=== PATIENT | female | born 1950 | race Caucasian/White ===

== ENCOUNTER 2016-04-06 06:43 | Observation (INO) | payer OTHER ==
[~2016-04-06] VITALS: Ht 162.6 cm; Wt 110.6 kg
[~2016-04-06 06:43] MED LIST: ADVAIR 250/501 DISK IH; ASPIRIN E.C.81 M1 PO; ATROVENT 00.5 MG/2.5 IH; Advair HFA 115/21 IH; BENTYL20 MG PO; BRILINTA90 MG PO; CEFTIN500 MG PO; CRESTOR40 MG PO; DOXYCYCLINE HY100 MG PO; DULCOLAX5 MG PO; DUONEB3 ML IH; ERGOCALCIF50000 UNIT PO; GABAPENTIN300 MG PO; HABITROL,NICODE21 MG TD; LASIX20 MG PO; LASIX40 MG PO; LISINOPRIL10 MG PO; LOPRESSOR25 MG PO; Lasix PO; METOPROLOL TART25 MG PO; Medrol Dosepak PO; NICODERM CQ1 EAC2 TD; OMNICEF300 MG PO; PEPCID20 MG PO; PREDNISONE10 MG PO; PREDNISONE20 MG PO; PROAIR HFA8.5 GM IH; PROTONIX40 MG PO; PROVENTIL,2.5 MG/3 M IH; Proventil,Ventolin H IH; ST. JOSEPH ASPI81 MG PO; SUCRALFATE1 GM PO; VENTOLIN HFA18 GM IH; VITAMIN D2000 UNI1 PO; VITAMIN D31000 UNIT PO; WELLBUTRIN XL300 MG PO; ZANTAC150 MG PO; ZESTRIL10 MG PO; ZITHROMAX Z-PA250 MG PO; ZITHROMAX250 MG PO; ZITHROMAX500 MG PO; Zestril,Prinivil PO
[2016-04-06] MEDS ORDERED: DICYCLOMINE HCL20 MG PO (07:05)
[2016-04-06] MEDS ORDERED: 24 HOUR ALLER15.8 ML BOTH NARES (07:06)
[2016-04-06] MEDS ORDERED: AMOX TR-K CLV1 EAC4 PO (07:07)
[2016-04-06] MEDS ORDERED: SUCRALFATE1 GM PO (07:08)
[2016-04-06 07:34] LABS: HEMATOCRIT 43.2 % (36.0-46.0); MCH 29.6 PG (29.0-34.0); MCHC 33.6 G/DL (30.0-36.0); MCV 88.2 FL (83-99); MEAN PLAT.VOLUME 10.8 uM^3 (9.5-12.4); PLATELET COUNT 254 K/uL (156-360); RBC DIS.WIDTH-CV 14.6 % (11.8-14.6); RBC DIS.WIDTH-SD 46.4 % (39-53); WHITE BLOOD COUNT 8.8 K/uL (4.1-10.2)
[2016-04-06 08:12] LABS: ANION GAP 12 MEQ/L (2-14); CHLORIDE 104 MEQ/L (99-109); GFR ESTIMATE (CALCULATED) > 59 mL/min/; GLUCOSE 116 mg/dL (70-99); SAMPLE HEMOLYSIS CHECK 0; SAMPLE ICTERIC CHECK 0; SAMPLE LIPEMIA CHECK 0; SODIUM 139 MEQ/L (136-147); UREA NITROGEN (BUN) 12 mg/dL (9-23)
[2016-04-06 08:14] LABS: TROP-I INTERPRETATION NEGATIVE; TROPONIN-I 0.01 ng/mL (0.0-0.30)
[2016-04-06] MEDS ORDERED: PROVENTIL,2.5 MG/3 M IH (09:25)
[2016-04-06 11:00] VITALS: BP 127/65
[2016-04-06 12:11] VITALS: BP 135/75
[2016-04-06 15:02] LABS: TROP-I INTERPRETATION NEGATIVE; TROPONIN-I 0.02 ng/mL (0.0-0.30)
[2016-04-06 15:58] VITALS: BP 173/92
[2016-04-06 16:45] VITALS: BP 135/84
[2016-04-06 20:39] LABS: TROP-I INTERPRETATION NEGATIVE; TROPONIN-I 0.03 ng/mL (0.0-0.30)
[2016-04-06 21:19] VITALS: BP 127/87
[2016-04-07 00:31] VITALS: BP 134/70
[2016-04-07 05:24] VITALS: BP 117/58
[2016-04-07 08:50] VITALS: BP 124/65
[2016-04-07 12:57] VITALS: BP 135/65
[2016-04-07] MEDS ORDERED: PANTOPRAZOLE SO40 MG PO (14:02)
[2016-04-07 16:17] VITALS: BP 145/75
[2016-04-07 16:23] VITALS: BP 115/56
== END 2016-04-07 17:30 | disposition home or self-care (01) ==
LOC: EME → EDBD 06:43 → EME 06:43 → EDOF 08:49 → 5WEST 10:44
PROVIDERS: Emergency Medicine; Internal Medicine
DX: R07.9 Chest pain, unspecified (principal); R00.1 Bradycardia, unspecified; I25.10 Atherosclerotic heart disease of native coronary artery without angina pectoris; I25.2 Old myocardial infarction; Z98.61 Coronary angioplasty status; J44.9 Chronic obstructive pulmonary disease, unspecified; I10 Essential (primary) hypertension; E78.5 Hyperlipidemia, unspecified; G47.30 Sleep apnea, unspecified; Z85.820 Personal history of malignant melanoma of skin; Z88.8 Allergy status to other drugs, medicaments and biological substances; Z80.1 Family history of malignant neoplasm of trachea, bronchus and lung; Z82.49 Family history of ischemic heart disease and other diseases of the circulatory system; Z83.3 Family history of diabetes mellitus; Z82.5 Family history of asthma and other chronic lower respiratory diseases; Z87.891 Personal history of nicotine dependence
CPT/HCPCS: 71020; 80048; 83880; 84484; 85027; 93005; 94640; 94640 76; 94799; 99202; 99281; 99285; G0378; J1650; J2270; J2405

== ENCOUNTER 2016-06-12 17:46 | Emergency (ER) | payer OTHER ==
[~2016-06-12] VITALS: Ht 162.6 cm; Wt 115.8 kg
[~2016-06-12 17:46] MED LIST changes: +24 HOUR ALLER15.8 ML BOTH NARES; +AMOX TR-K CLV1 EAC4 PO; +DICYCLOMINE HCL20 MG PO; +PANTOPRAZOLE SO40 MG PO
[2016-06-12 19:23] LABS: EOSINOPHIL (%) 2.9 % (0-5); EOSINOPHIL COUNT 0.2 K/uL (0-0.3); HEMATOCRIT 41.1 % (36.0-46.0); IMMATURE GRANULOCYTE (%) 0.5 % (0.0-0.7); LYMPHOCYTE COUNT 2.4 K/uL (1.0-2.8); MCHC 32.4 G/DL (30.0-36.0); MCV 89.7 FL (83-99); MEAN PLAT.VOLUME 10.8 uM^3 (9.5-12.4); MONOCYTE (%) 6.1 % (3-12); MONOCYTE COUNT 0.5 K/uL (0-0.8); NEUTROPHIL (%) 61.6 % (45-76); PLATELET COUNT 256 K/uL (156-360); RBC DIS.WIDTH-SD 45.9 % (39-53); RED BLOOD COUNT 4.58 M/uL (3.80-5.20); WHITE BLOOD COUNT 8.2 K/uL (4.1-10.2)
[2016-06-12 19:40] LABS: CHLORIDE 106 mEq/L (99-109); POTASSIUM 4.5 mEq/L (3.7-5.4); SODIUM 140 mEq/L (136-147)
[2016-06-12 19:42] LABS: GLUCOSE 93 mg/dL (70-99)
[2016-06-12 19:43] LABS: ANION GAP 8 MEQ/L (2-14)
[2016-06-12 19:44] LABS: TOTAL BILIRUBIN 0.6 mg/dL (0.0-1.0)
[2016-06-12 19:45] LABS: ALKALINE PHOSPHATASE 54 IU/L (3-129)
[2016-06-12 19:46] LABS: GFR ESTIMATE (CALCULATED) > 59 mL/min/
[2016-06-12 19:47] LABS: UREA NITROGEN (BUN) 13 mg/dL (9-23)
[2016-06-12 19:48] LABS: TROP-I INTERPRETATION NEGATIVE; TROPONIN-I < 0.01 ng/mL (0.0-0.30)
[2016-06-12 19:49] LABS: LIPASE 28 U/L (1.0-51.0)
[2016-06-12] MEDS ORDERED: SPIRIVA1 INHALATI IH (22:00)
[2016-06-12] MEDS ORDERED: PROTONIX40 MG PO ×2 (22:00→23:01)
[2016-06-12] MEDS ORDERED: COZAAR25 MG PO (22:01)
[2016-06-12] MEDS ORDERED: SUCRALFATE1 GM PO (23:01)
[2016-06-12 23:34] VITALS: BP 162/97
== END 2016-06-12 23:36 | disposition home or self-care (01) ==
LOC: EME → EDBD 17:46 → EME 17:46 → EDOF 21:42 → EME 21:42 → EDOF 21:42
PROVIDERS: Emergency Medicine
DX: R07.9 Chest pain, unspecified (principal); K21.9 Gastro-esophageal reflux disease without esophagitis; I25.10 Atherosclerotic heart disease of native coronary artery without angina pectoris; I25.2 Old myocardial infarction; E66.01 Morbid (severe) obesity due to excess calories; I11.0 Hypertensive heart disease with heart failure; I50.9 Heart failure, unspecified; E78.5 Hyperlipidemia, unspecified; Z68.41 Body mass index [BMI] 40.0-44.9, adult; H61.891 Other specified disorders of right external ear; Z95.5 Presence of coronary angioplasty implant and graft; Z87.891 Personal history of nicotine dependence
CPT/HCPCS: 71020; 80053; 80061; 83690; 84484; 85025; 93005; 99281; 99285; C9113

== ENCOUNTER 2016-12-07 12:38 | Observation (INO) | payer OTHER ==
[~2016-12-07] VITALS: Ht 162.6 cm; Wt 108.1 kg
[~2016-12-07 12:38] MED LIST changes: +COZAAR50 MG PO; +SPIRIVA1 INHALATI IH; +WELLBUTRIN XL150 MG PO; -WELLBUTRIN XL300 MG PO
[2016-12-07 14:16] LABS: EOSINOPHIL (%) 1.3 % (0-5); EOSINOPHIL COUNT 0.1 K/uL (0-0.3); HEMATOCRIT 44.1 % (36.0-46.0); IMMATURE GRANULOCYTE (%) 0.4 % (0.0-0.7); INSTRUMENT ABS NEUTROPHIL CT 6.8 K/uL; LYMPHOCYTE COUNT 2.3 K/uL (1.0-2.8); MCH 29.4 PG (29.0-34.0); MCHC 32.9 G/DL (30.0-36.0); MCV 89.3 FL (83-99); MEAN PLAT.VOLUME 11.1 uM^3 (9.5-12.4); MONOCYTE (%) 4.6 % (3-12); MONOCYTE COUNT 0.4 K/uL (0-0.8); NEUTROPHIL (%) 69.9 % (45-76); NEUTROPHIL COUNT 6.8 K/uL (1.8-6.4); PLATELET COUNT 279 K/uL (156-360); RBC DIS.WIDTH-CV 14.6 % (11.8-14.6); RBC DIS.WIDTH-SD 47.6 % (39-53); RED BLOOD COUNT 4.94 M/uL (3.80-5.20); WHITE BLOOD COUNT 9.7 K/uL (4.1-10.2)
[2016-12-07 14:33] LABS: ANION GAP 8 MEQ/L (2-14); CHLORIDE 106 MEQ/L (99-109); SAMPLE HEMOLYSIS CHECK 0; SAMPLE ICTERIC CHECK 0; SAMPLE LIPEMIA CHECK 0; SODIUM 143 MEQ/L (136-147)
[2016-12-07 14:38] LABS: GFR ESTIMATE (CALCULATED) > 59 mL/min/; GLUCOSE 98 mg/dL (70-99); UREA NITROGEN (BUN) 8 mg/dL (9-23)
[2016-12-07 14:42] LABS: TROP-I INTERPRETATION NEGATIVE; TROPONIN-I 0.01 ng/mL (0.0-0.30)
[2016-12-07 17:39] LABS: TROP-I INTERPRETATION NEGATIVE; TROPONIN-I < 0.01 ng/mL (0.0-0.30)
[2016-12-07] MEDS ORDERED: WELLBUTRIN XL150 MG PO (17:55)
[2016-12-07] MEDS ORDERED: FUROSEMIDE20 MG PO (17:57)
[2016-12-07] MEDS ORDERED: PROTONIX40 MG PO (17:57)
[2016-12-07 20:00] VITALS: BP 148/97
[2016-12-07 23:07] VITALS: BP 105/56
[2016-12-08 01:46] LABS: TROP-I INTERPRETATION NEGATIVE; TROPONIN-I < 0.01 ng/mL (0.0-0.30)
[2016-12-08 03:31] VITALS: BP 108/56
[2016-12-08 07:30] VITALS: BP 130/76
[2016-12-08 08:48] LABS: HEMATOCRIT 44.4 % (36.0-46.0); MCH 28.1 PG (29.0-34.0); MCHC 31.5 G/DL (30.0-36.0); MCV 89.2 FL (83-99); MEAN PLAT.VOLUME 11.1 uM^3 (9.5-12.4); PLATELET COUNT 268 K/uL (156-360); RBC DIS.WIDTH-CV 14.7 % (11.8-14.6); RBC DIS.WIDTH-SD 48.2 % (39-53); RED BLOOD COUNT 4.98 M/uL (3.80-5.20); WHITE BLOOD COUNT 7.9 K/uL (4.1-10.2)
[2016-12-08 09:11] LABS: ALKALINE PHOSPHATASE 53 IU/L (3-129); ANION GAP 10 MEQ/L (2-14); CHLORIDE 103 MEQ/L (99-109); GFR ESTIMATE (CALCULATED) > 59 mL/min/; GLUCOSE 118 mg/dL (70-99); POTASSIUM 3.7 MEQ/L (3.7-5.4); SAMPLE HEMOLYSIS CHECK 0; SAMPLE ICTERIC CHECK 0; SAMPLE LIPEMIA CHECK 0; SODIUM 142 MEQ/L (136-147); TOTAL BILIRUBIN 1.1 MG/DL (0.0-1.0); UREA NITROGEN (BUN) 8 mg/dL (9-23)
[2016-12-08 09:20] LABS: TROP-I INTERPRETATION NEGATIVE; TROPONIN-I < 0.01 ng/mL (0.0-0.30)
[2016-12-08 11:32] VITALS: BP 145/89
[2016-12-08] MEDS ORDERED: MAG-AL PLUS SUS30 ML PO (13:47)
== END 2016-12-08 16:00 | disposition home or self-care (01) ==
LOC: EME 12:38 → EDOF 18:11 → ENRESERV 18:12 → 5WEST 19:51
PROVIDERS: Emergency Medicine; Internal Medicine
DX: K21.9 Gastro-esophageal reflux disease without esophagitis (principal); I10 Essential (primary) hypertension; J44.9 Chronic obstructive pulmonary disease, unspecified; E78.5 Hyperlipidemia, unspecified; G47.33 Obstructive sleep apnea (adult) (pediatric); G43.909 Migraine, unspecified, not intractable, without status migrainosus; F32.9 Major depressive disorder, single episode, unspecified; Z85.820 Personal history of malignant melanoma of skin; I25.10 Atherosclerotic heart disease of native coronary artery without angina pectoris; Z95.5 Presence of coronary angioplasty implant and graft; Z90.49 Acquired absence of other specified parts of digestive tract; Z82.49 Family history of ischemic heart disease and other diseases of the circulatory system; Z83.3 Family history of diabetes mellitus; Z80.1 Family history of malignant neoplasm of trachea, bronchus and lung; Z82.5 Family history of asthma and other chronic lower respiratory diseases; Z80.8 Family history of malignant neoplasm of other organs or systems; Z87.891 Personal history of nicotine dependence; Z88.1 Allergy status to other antibiotic agents
CPT/HCPCS: 71010; 80048; 80053; 84484; 85025; 85027; 93005; 94640; 94640 76; 99202; 99281; 99285; G0378; J1650

== ENCOUNTER 2017-02-23 04:53 | Observation (INO) | payer OTHER ==
[~2017-02-23] VITALS: Ht 171.4 cm; Wt 112.5 kg
[~2017-02-23 04:53] MED LIST changes: +COZAAR100 MG PO; -COZAAR50 MG PO; +FUROSEMIDE20 MG PO; +MAG-AL PLUS SUS30 ML PO
[2017-02-23 05:21] LABS: CHLORIDE 104 mEq/L (99-109); POTASSIUM 4.4 mEq/L (3.7-5.4); SODIUM 138 mEq/L (136-147)
[2017-02-23 05:23] LABS: GLUCOSE 110 mg/dL (70-99)
[2017-02-23 05:27] LABS: CREATININE 0.9 mg/dL (0.6-1.3); GFR ESTIMATE (CALCULATED) > 59 mL/min/
[2017-02-23 05:28] LABS: UREA NITROGEN (BUN) 13 mg/dL (9-23)
[2017-02-23 05:32] LABS: TROP-I INTERPRETATION NEGATIVE; TROPONIN-I < 0.01 ng/mL (0.0-0.30)
[2017-02-23 05:43] LABS: HEMATOCRIT 43.7 % (36.0-46.0); HEMOGLOBIN 14.3 G/DL (11.9-15.5); MCH 29.1 PG (29.0-34.0); MCHC 32.7 G/DL (30.0-36.0); PLATELET COUNT 275 K/uL (156-360); RBC DIS.WIDTH-CV 14.9 % (11.8-14.6); RBC DIS.WIDTH-SD 48.7 % (39-53); RED BLOOD COUNT 4.91 M/uL (3.80-5.20); WHITE BLOOD COUNT 8.5 K/uL (4.1-10.2)
[2017-02-23 07:08] LABS: ALBUMIN 3.9 G/DL (3.2-4.8); ALKALINE PHOSPHATASE 58 IU/L (3-129); ALT (GPT) 19 IU/L (3-49); AST (GOT) 19 IU/L (2-34); DIRECT BILIRUBIN 0.2 mg/dL (0.0-0.3); LIPASE 24 U/L (1.0-51.0); TOTAL PROTEIN 6.9 G/DL (6.4-8.3)
[2017-02-23 07:40] LABS: APPEARANCE CLEAR ((CLEAR)); BILIRUBIN NEGATIVE; BLOOD NEGATIVE; COLOR YELLOW ((YELLOW)); GLUCOSE (STRIP) NEGATIVE; KETONES NEGATIVE; LEUKOCYTES NEGATIVE; NITRITE NEGATIVE; PROTEIN (STRIP) NEGATIVE; SPECIFIC GRAVITY 1.009 (1.000-1.030); UROBILINOGEN 0.2 MG/DL (0.2-1.0)
[2017-02-23 09:57] VITALS: BP 139/86
[2017-02-23 11:52] LABS: TROP-I INTERPRETATION NEGATIVE; TROPONIN-I < 0.01 ng/mL (0.0-0.30)
[2017-02-23] MEDS ORDERED: BREO ELLIPTA I1 EACH IH (14:41)
[2017-02-23] MEDS ORDERED: FLONASE16 G1 BOTH NARES (14:41)
[2017-02-23] MEDS ORDERED: MAG-AL PLUS SUS30 ML PO (15:00)
[2017-02-23 16:10] VITALS: BP 142/79
[2017-02-23 16:40] VITALS: BP 137/78
[2017-02-23 17:06] LABS: TROP-I INTERPRETATION NEGATIVE; TROPONIN-I < 0.01 ng/mL (0.0-0.30)
== END 2017-02-23 18:41 | disposition home or self-care (01) ==
LOC: EME → EDBD 04:53 → EME 04:53 → EDOF 08:45 → ENRESERV 09:01 → EDOF 09:27 → 5WEST 09:52
PROVIDERS: Nurse Practitioner Family; Physician Assistant Medical
DX: R07.9 Chest pain, unspecified (principal); J04.2 Acute laryngotracheitis; I25.10 Atherosclerotic heart disease of native coronary artery without angina pectoris; Z95.5 Presence of coronary angioplasty implant and graft; I11.0 Hypertensive heart disease with heart failure; I50.9 Heart failure, unspecified; G47.33 Obstructive sleep apnea (adult) (pediatric); K21.9 Gastro-esophageal reflux disease without esophagitis; E78.5 Hyperlipidemia, unspecified; J44.9 Chronic obstructive pulmonary disease, unspecified; Z90.49 Acquired absence of other specified parts of digestive tract; Z87.891 Personal history of nicotine dependence; Z82.49 Family history of ischemic heart disease and other diseases of the circulatory system; Z80.1 Family history of malignant neoplasm of trachea, bronchus and lung
CPT/HCPCS: 71020; 80048; 80076; 81003; 83690; 84484; 85027; 93005; 94640; 94640 76; 99202; 99281; 99285; G0378; J1650

== ENCOUNTER 2017-03-18 02:55 | Emergency (ER) | payer OTHER ==
[~2017-03-18] VITALS: Ht 162.6 cm; Wt 111.3 kg
[~2017-03-18 02:55] MED LIST changes: +BREO ELLIPTA I1 EACH IH; +FLONASE16 G1 BOTH NARES
[2017-03-18 02:57] VITALS: BP 169/88
[2017-03-18 03:22] LABS: HEMATOCRIT 44.5 % (36.0-46.0); HEMOGLOBIN 14.6 G/DL (11.9-15.5); MCH 29.6 PG (29.0-34.0); MCHC 32.8 G/DL (30.0-36.0); MCV 90.1 FL (83-99); PLATELET COUNT 271 K/uL (156-360); RBC DIS.WIDTH-CV 14.8 % (11.8-14.6); RED BLOOD COUNT 4.94 M/uL (3.80-5.20); WHITE BLOOD COUNT 9.7 K/uL (4.1-10.2)
[2017-03-18 03:36] LABS: CHLORIDE 106 mEq/L (99-109); POTASSIUM 3.5 mEq/L (3.7-5.4); SODIUM 140 mEq/L (136-147)
[2017-03-18 03:39] LABS: GLUCOSE 129 mg/dL (70-99); TOTAL PROTEIN 6.9 g/dL (6.4-8.3)
[2017-03-18 03:41] LABS: TOTAL BILIRUBIN 0.7 mg/dL (0.0-1.0)
[2017-03-18 03:42] LABS: ALKALINE PHOSPHATASE 56 IU/L (3-129); CREATININE 0.8 mg/dL (0.6-1.3); GFR ESTIMATE (CALCULATED) > 59 mL/min/
[2017-03-18 03:43] LABS: UREA NITROGEN (BUN) 11 mg/dL (9-23)
[2017-03-18 03:44] LABS: AST (GOT) 20 IU/L (2-34)
[2017-03-18 03:45] LABS: ALT (GPT) 25 IU/L (3-49)
== END 2017-03-18 05:55 | disposition left against medical advice (07) ==
LOC: EME 02:55
DX: R42 Dizziness and giddiness (principal); Z53.21 Procedure and treatment not carried out due to patient leaving prior to being seen by health care provider
CPT/HCPCS: 80053; 81003; 85027; 93005

== ENCOUNTER 2017-08-31 21:20 | Observation (INO) | payer OTHER ==
[~2017-08-31] VITALS: Ht 160 cm; Wt 112.7 kg
[2017-08-31 22:30] LABS: BASOPHIL (%) 0.3 % (0-1); EOSINOPHIL (%) 1.8 % (0-5); EOSINOPHIL COUNT 0.2 K/uL (0-0.3); HEMATOCRIT 42.1 % (36.0-46.0); HEMOGLOBIN 13.9 G/DL (11.9-15.5); IMMATURE GRANULOCYTE (%) 0.5 % (0.0-0.7); LYMPHOCYTE (%) 26.1 % (15-42); LYMPHOCYTE COUNT 2.3 K/uL (1.0-2.8); MCH 29.2 PG (29.0-34.0); MCV 88.4 FL (83-99); MONOCYTE (%) 6.7 % (3-12); MONOCYTE COUNT 0.6 K/uL (0-0.8); NEUTROPHIL (%) 64.6 % (45-76); NEUTROPHIL COUNT 5.7 K/uL (1.8-6.4); PLATELET COUNT 242 K/uL (156-360); RBC DIS.WIDTH-CV 14.7 % (11.8-14.6); RBC DIS.WIDTH-SD 47.1 % (39-53); RED BLOOD COUNT 4.76 M/uL (3.80-5.20); WHITE BLOOD COUNT 8.8 K/uL (4.1-10.2)
[2017-08-31 22:44] LABS: CHLORIDE 103 mEq/L (99-109); POTASSIUM 3.9 mEq/L (3.7-5.4); SODIUM 142 mEq/L (136-147)
[2017-08-31 22:45] LABS: GLUCOSE 104 mg/dL (70-99)
[2017-08-31 22:49] LABS: CREATININE 1.4 mg/dL (0.6-1.3); GFR ESTIMATE (CALCULATED) 40 mL/min/
[2017-08-31 22:50] LABS: UREA NITROGEN (BUN) 14 mg/dL (9-23)
[2017-08-31 22:57] LABS: TROP-I INTERPRETATION NEGATIVE; TROPONIN-I 0.01 ng/mL (0.0-0.30)
[2017-09-01] MEDS ORDERED: AMLODIPINE BESYL5 MG PO (00:19)
[2017-09-01] MEDS ORDERED: CARAFATE1 GM PO (00:19)
[2017-09-01] MEDS ORDERED: NITROSTAT0.4 MG SL (00:20)
[2017-09-01] MEDS ORDERED: SHINGRIX V50 MCG/0.5 IM (00:20)
[2017-09-01 01:40] VITALS: BP 137/75
[2017-09-01 07:36] VITALS: BP 125/60
[2017-09-01] MEDS ORDERED: AZITHROMYCIN500 M1 PO (09:13)
[2017-09-01] MEDS ORDERED: MAG-AL PLUS SUS30 ML PO (09:15)
[2017-09-01 11:24] LABS: TROP-I INTERPRETATION NEGATIVE; TROPONIN-I < 0.01 ng/mL (0.0-0.30)
[2017-09-01 11:33] VITALS: BP 111/68
[2017-09-01 16:19] VITALS: BP 124/76
[2017-09-01 17:16] LABS: TROP-I INTERPRETATION NEGATIVE; TROPONIN-I < 0.01 ng/mL (0.0-0.30)
== END 2017-09-01 18:18 | disposition home or self-care (01) ==
LOC: EME → EDBD 21:20 → EME 21:20 → EDOF 09-01 00:05 → ENRESERV 09-01 00:06 → 4SOUTH 09-01 01:31
PROVIDERS: Emergency Medicine; Internal Medicine; Physician Assistant Medical
DX: R07.9 Chest pain, unspecified (principal); K21.9 Gastro-esophageal reflux disease without esophagitis; I25.10 Atherosclerotic heart disease of native coronary artery without angina pectoris; I25.2 Old myocardial infarction; J44.9 Chronic obstructive pulmonary disease, unspecified; F41.9 Anxiety disorder, unspecified; N17.9 Acute kidney failure, unspecified; I45.10 Unspecified right bundle-branch block; Z95.5 Presence of coronary angioplasty implant and graft; I10 Essential (primary) hypertension; E78.5 Hyperlipidemia, unspecified; E66.01 Morbid (severe) obesity due to excess calories; Z68.41 Body mass index [BMI] 40.0-44.9, adult; Z87.891 Personal history of nicotine dependence; Z90.710 Acquired absence of both cervix and uterus; Z59.0 Homelessness; Z85.820 Personal history of malignant melanoma of skin; E11.9 Type 2 diabetes mellitus without complications; Z79.82 Long term (current) use of aspirin; Z88.8 Allergy status to other drugs, medicaments and biological substances
CPT/HCPCS: 71046; 80048; 84484; 85025; 93005; 94640; 94799; 99281; 99284; G0378; J1650; J7030